=== PATIENT | male | born 1990 | race Caucasian/White ===

== ENCOUNTER → 2017-04-06 | Outpatient (CLI) | payer BC ==
--- NOTE | 2017-04-06 11:17 | RADRPT ---
PROCEDURE: XR Bilateral Knees CLINICAL INDICATION: Pain TECHNIQUE: AP, lateral and sunrise views were obtained of each knee. COMPARISON: None FINDINGS: Osseous structures: appear well mineralized and intact with no fracture or destructive process iden tified. On the left, there is a separate corticated ossification at the anterior tibial tuberosity. Joint spaces: are well maintained, with no significant spurring, erosion or significant joint effus ion evident. Soft tissues: appear unremarkable. IMPRESSION: 1. A separate ossification is seen at the left anterior tibial tuberosity not associated with signi ficant soft tissue swelling. 2. Otherwise, unremarkable bilateral knee series. Physician Aleshia Date Time Electronically viewed and signed by Physician Aleshia on 04/06/2017 11:17 /
== END | disposition home or self-care (01) ==
LOC: HKI 11:34
PROVIDERS: ATTEND Orthopaedic Surgery
DX: M22.41 Chondromalacia patellae, right knee (principal); M25.562 Pain in left knee; M25.561 Pain in right knee
CPT/HCPCS: 73564; G0463